=== PATIENT | male | born 1965 | race Caucasian/White ===

== ENCOUNTER 2024-05-06 12:54 | Inpatient (IN) | payer OTHER, SELFPAY ==
[2024-05-06] VITALS (16 sets, daily range): BP systolic 95–141; BP diastolic 62–88; PULSE 61–77; BMI 31.5
--- NOTE | 2024-05-06 09:31 | ED.GENMED ---
History of Present Illness
General
Chief Complaint: Fainting/Passed Out
Source: patient
Time Seen by Provider: 05/06/24 09:21
History of Present Illness
History of Present Illness:
58-year-old male brought to the emergency room from [facility] after suffering a syncopal episode. Patient was preparing to go to court. He he was anticipating being released from assisted based on this court date. He began feeling dizzy
and lightheaded like he might pass out. He sat down on a chair. He then did pass out. He has passed out past but it has been quite a long time. Currently he is having a headache as well as some upper thoracic pain. The upper thoracic pain has
been present for the past couple days. Patient denies any chest pain or shortness of breath. He denies any focal weakness numbness or tingling. He further denies any nausea or vomiting. Patient has a history of coronary artery disease with CABG.
He also had a pulmonary embolism years ago but is no longer on anticoagulation.
Past History
Past History
ED Past Medical History: CAD, CHF, HTN, Hypercholesterolemia, Psychiatric (Major depression, self injury, alcohol abuse) and Other (PE)
ED Past Surgical History: Cardiac (CABG) and Cholecystectomy
Social History
Tobacco: Smoker
Alcohol: Binge drinker
Drug: None
Personal:
Living: homeless
Employment: Disabled
Family History
Family History: Unable to obtain
Phy Exam
Physical Exam
Physical Exam:
General: Awake, Alert, Oriented X3. No acute distress.
Vitals: Bradycardic
Head: Atraumatic
Eyes: Pupils equal, EOMI
Throat: Airway intact, no exudates
Neck: Trachea midline
Lungs: Clear and equal b/l
Heart: Regular rate, no murmurs
Abd: Soft, Nontender, No pulsatile mass
Neuro: Cranial nerves intact, muscle strength equal bilaterally
Skin: Warm, dry, no rash
Extremities: pulses equal b/l, no edema
Course
Orders/Labs/Results
Orders:
Orders
05/06/24 09:19
Electrocardiogram (*1) Urgent
Reason for Study: Syncope
EKG- Treatment ONCE
05/06/24 09:28
Complete Blood Count/With Diff Urgent
Comprehensive Metabolic Panel Urgent
D-Dimer Urgent
Ferritin Urgent
Comment: ADD ON
Iron Urgent
Comment: ADD ON
PTT Urgent
TSH Urgent
Comment: ADD ON
Total Iron Binding Urgent
Comment: ADD ON
Troponin I Urgent
05/06/24 09:29
Add On- LAB Urgent
Tests Added?: D dimer
CT Head W/o Iv Contrast Urgent
Comment:
Reason For Exam: headache, syncope
05/06/24 10:33
Type+Screen Urgent
05/06/24 10:46
ABO2 Routine
BBK Wristband Number:
Associate notified that ABO2 has been ordered: CATRACHITO
Date: 05/06/24
Time: 10:40
Floor Worker Well Service ID: [id number]
05/06/24 12:32
CT Chest PE Study Urgent
Comment:
Reason For Exam: syncope chest/back pain
0.9% Sodium Chloride 1000 ml [Nss] 1,000 ml IV BOLUS
05/06/24 12:36
Add On- LAB Routine
Tests Added?: TSH, Iron, Ferrtin, TIBC
05/06/24 12:38
Admit/Transfer Patient As Directed
Co-Sign Provider:
Level of Care: Inpatient admission
Assign to:: Telemetry
Physician / Group: Kwesi
Diagnosis: Syncope
Reason for Telemetry: Chest Pain syndromes
Date to Stop Telemetry: 05/08/24
Time to Stop Telemetry: 11:00
Reason for Hospitalization: Syncope
Expected length of stay greater than two midnights?: Yes
ELOS- Estimated Length of Stay in days: 2
I certify the patient meets the requirements for IP care: Yes
05/06/24 12:40
Code Status As Directed
Resuscitation Status: Full Code
05/06/24 12:42
Echo 2D MMode Color/Doppler Routine
Reason for Study: syncope, hypotension
05/08/24 11:00
DC Protocol for Telemetry ONCE
Abnormal Lab Results
05/06/24
09:28
RBC 3.98 L 10^6/uL
(4.70-6.10)
Hgb 7.8 L g/dL
(13.0-18.0)
Hct 27.7 L %
(39.0-52.0)
MCV 69.6 L fL
(80.0-94.0)
MCH 19.6 L pg
(27.0-31.0)
MCHC 28.2 L g/dL
(33.0-37.0)
RDW 17.9 H %
(11.5-14.5)
Plt Count 79 L 10^3/uL
(130-400)
Absolute Lymphs (auto) 0.8 L 10^3/uL
(1.2-3.4)
Lymphocytes % 16.0 L %
(20.5-51.1)
Monocytes % 9.5 H %
(1.7-9.3)
Glucose 186 H mg/dl
(70-99)
Iron 46 L ug/dl
(49-181)
TIBC 483 H ug/dl
(261-462)
% Saturation 9 L %
(20-50)
Ferritin 5.0 L ng/ml
(17.9-464.0)
05/06/24 09:28
05/06/24 09:28
Vital Signs
Initial and Last Documented VS:
Initial Vital Signs
Temp Pulse Resp BP Pulse Ox
97.9 F 55 16 102/70 98
05/06/24 09:20 05/06/24 09:20 05/06/24 09:20 05/06/24 09:20 05/06/24 09:20
Last Documented Vital Signs
Temp Pulse Resp BP Pulse Ox
97.9 F 63 20 110/83 100
05/06/24 09:20 05/06/24 13:45 05/06/24 13:45 05/06/24 13:00 05/06/24 10:30
MDM/Problems Addressed
Differential Diagnosis Includes:
Vasovagal syncope, dehydration, anemia, cardiac dysrhythmia, PE
MDM/Problems Addressed:
Patient presents from assisted after suffering a syncopal event. No clear prodrome. Patient found to be anemic here. Certainly could be symptomatic anemia. I communicated with nursing staff at the assisted they state the patient had hemoglobin of
9.3 on April 15. 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 However he denies melanotic stool and is heme-negative on exam. Patient will require hospitalization for further monitoring
and workup. Considered PE but D-dimer is low and the patient does not have any shortness of breath and is not tachycardic.
Chronic conditions affecting care: HTN and CAD
*Radiology
Radiology exam reviewed: radiology read reviewed
*Pulse Oximetry
Patient hypoxic: no
*EKG
Heart Rate: 55
Rate: bradycardiac
Rhythm: sinus
[place]: normal axis
Interval: normal interval
QRS Pattern: normal QRS
Ischemia: no ischemia
*Manager Technical Interpretation
Rate: bradycardiac
Heart Rate: 55
Rhythm: sinus
*Critical Care Note
Total Time (30-74mins, 75-104mins- exclusive of procedures): Not Applicable
Patient Management
Social determinants of health affecting care: Living situation
ED Attending Note
-
Portions of this chart may have been created with voice recognition software.� Occasional wrong word or��sound alike� substitutions may have occurred due to the inherent limitations of voice recognition software.
Discharge Plan
Departure
Patient Disposition: Admit
Date of Disposition: 05/06/24
Time of Disposition: 10:11
Admit to: Telemetry
Presentation/result/management discussed w/ accepting MD/DO: Hospitalist
Condition: Fair
Discharge Problem:
Syncope, Anemia
Interventions
Interventions:
*Risk Screen - Suicide Last Done: 05/06/24 09:20
*General Assessment Last Done: 05/06/24 09:20
*Neglect/Abuse Screening Last Done: 05/06/24 09:20
ED- Fall Risk Assessment Last Done: 05/06/24 09:34
*ED COVID-19 Vaccine History Last Done: 05/06/24 11:47
ED- Cardiac Assessment Last Done: 05/06/24 09:34
ED- Neurological Assessment Last Done: 05/06/24 09:34
[2024-05-06 09:48] LABS: APTT 25.9 Sec (23.4-35.0)
[2024-05-06 09:49] LABS: ALT (SGPT) 17 U/L (0-50); AST (SGOT) 22 U/L (17-59); Alkaline Phosphatase 47 U/L (38-126); Blood Urea Nitrogen 18 mg/dl (9-20); Calcium 8.5 mg/dl (8.4-10.2); Carbon Dioxide 27 mmol/L (22-30); Chloride 105 mmol/L (98-107); Glucose 186 mg/dl (70-99); Potassium 4.3 mmol/L (3.5-5.1); Sodium 142 mmol/L (135-145); Total Bilirubin 0.8 mg/dl (0.2-1.3); Total Protein 6.7 g/dl (6.3-8.2); eGFR > 60.00
[2024-05-06 09:51] LABS: D-Dimer 0.32 ug/mlFEU (0.00-0.50)
[2024-05-06 09:52] LABS: % Basophils 0.2 % (0-2); % Eosinophils 1.8 % (0-6); % Immature Granulocytes 0.4 % (0-0.5); % Monocytes 9.5 % (1.7-9.3); % Neutrophils 72.1 % (42.2-75.2); Absolute Eosinophils 0.1 10^3/uL (0-0.7); Absolute Lymphocytes 0.8 10^3/uL (1.2-3.4); Absolute Monocytes 0.5 10^3/uL (0.1-0.6); Absolute Neutrophils 3.6 10^3/uL (1.4-6.5); Hematocrit 27.7 % (39.0-52.0); Hemoglobin 7.8 g/dL (13.0-18.0); Mean Corp Hgb Conc. 28.2 g/dL (33.0-37.0); Mean Corpuscular Hgb 19.6 pg (27.0-31.0); Mean Corpuscular Volume 69.6 fL (80.0-94.0); Nucleated Red Blood Cells % 0 % (-); Red Blood Cell Count 3.98 10^6/uL (4.70-6.10); Red Cell Dist. Width 17.9 % (11.5-14.5); White Blood Cell Count 4.9 10^3/uL (4.8-10.8)
[2024-05-06 10:01] LABS: Troponin I < 0.012 ng/ml
[2024-05-06 11:23] LABS: Platelet Count 79 10^3/uL (130-400)
[2024-05-06 11:24] LABS: Anisocytosis 1+; Hypochromasia 2+; Normal RBC Morphology No; Ovalocytes 2+; Polychromasia 1+
--- NOTE | 2024-05-06 12:43 | HPS.HSE ---
Family Physician
-
Family Physician: [facility]
Chief Complaint
-
Syncope
History of Present Illness
Patient is a 58-year-old male with history of coronary artery disease, CABG, hypertension, diabetes, prior history of pulmonary embolism currently not on anticoagulation who presents from shelter after syncopal episode. Patient describes dizziness
and lightheadedness prior to episode. He also admits of a transient chest and back pain which is currently resolved. He denies any fever, respiratory symptoms and admits being in his normal state of health prior to episode. He has been adherent
to his antihypertensive/cardiovascular medication regimen. On additional workup in the emergency room patient was found to have trending down hemoglobin at 7.8 with reported recent around 10. He denies any gastrointestinal symptoms. Denies any
blood in stool. He has a remote colonoscopy. While in emergency room patient has noted to have a soft BP. His rectal exam with heme-negative brown stool.
Medical History
Past Medical History
Past Medical History: Reports CAD, CHF, NIDDM and Other (Pulm embolism)
Past Surgical History: Reports Other (CABG)
Social History
Tobacco: Non-smoker
Drug: None
Employment: Not Employed
Family History
Family History: Not pertinent
Allergies / Home Medications
Allergies reflects when Allergies were last updated in [facility].
Home Medications with original date entered in [facility]
Allergy/Medication List:
Allergies
Allergy/AdvReac Type Severity Reaction Status Date / Time
lamotrigine [From Lamictal] Allergy Unknown Unknown Verified 05/06/24 09:18
ketorolac tromethamine Allergy Unknown Verified 05/06/24 09:18
[From Toradol]
Penicillins Allergy Unknown Verified 05/06/24 09:18
tramadol HCl [From Ultram] Allergy Unknown Verified 05/06/24 09:18
Home Medications
aspirin 81 mg chewable tablet 81 mg PO HS 05/06/24
lisinopril 30 mg tablet 30 mg PO HS 05/06/24
metformin 500 mg tablet 500 mg PO BID 05/06/24
metoprolol tartrate 25 mg tablet 25 mg PO HS 05/06/24
simvastatin 40 mg tablet (Zocor) 40 mg PO HS 05/06/24
therapeutic multivitamin 1 tab PO DAILY 05/06/24
Review of Systems
-
Respiratory: Reports See HPI
Cardiac: Reports See HPI
Abdomen/GI: Reports See HPI
Physical Exam
Vital Signs
Vital Signs
Temp Pulse Resp BP Pulse Ox
97.9 F 61 19 103/71 100
05/06/24 09:20 05/06/24 10:45 05/06/24 10:45 05/06/24 10:00 05/06/24 10:30
Physical Exam
General: Well Developed, Well Nourished and No Apparent Distress
HEENT: NormoCephalic, Moist mucous membranes and Atraumatic
Respiratory: Clear
Cardiac: S1/S2 and Regular Rhythm; No Murmur or Rub
GI: Soft, Non Tender, Non Distended and Normal Bowel Sounds; No Organomegaly
Rectal: Deferred by Provider
Musculoskeletal: No Clubbing, No Cyanosis and No Edema
Skin: No Rash
Neuro: Nonfocal/grossly intact
Laboratory Results
-
05/06/24 09:28
05/06/24 09:28
Laboratory Results
APTT 25.9 Sec (23.4-35.0) 05/06/24 09:28
Total Bilirubin 0.8 mg/dl (0.2-1.3) 05/06/24 09:28
AST 22 U/L (17-59) 05/06/24 09:28
ALT 17 U/L (0-50) 05/06/24 09:28
Alkaline Phosphatase 47 U/L (38-126) 05/06/24 09:28
Troponin I < 0.012 ng/ml 05/06/24 09:28
Impression/Plan
-
IMPRESSION:
Syncope with prodrome
Transient episode of upper chest/back pain
Hypertension
Sinus bradycardia
Chronic anemia with microcytosis and drifting down hemoglobin.
Other conditions:
CAD.
CHF unknown EF.
Status post CABG.
Essential hypertension.
History of pulmonary embolism, not on anticoagulation prior to presentation
NIDDM.
PLAN:
Syncope with prodrome.
Patient describes transient sort of chest and back pain/discomfort.
Overall nontoxic-appearing although with soft BP in ED.
ECG with sinus bradycardia and without ischemic changes.
D-dimer and troponin undetectable
Check echo
Check TSH
Check CT scan of the chest with concern with attention to aorta, PE protocol
Continue beta-napole[place] with caution
Depends on workup and echo consider cardiology evaluation
Continue cardiac monitoring
Check orthostatics
Hold lisinopril
CAD
Patient reports CHF unknown EF
Echo pending
Continue aspirin and beta-blockade
Hold lisinopril given soft blood pressure
Trending down hemoglobin at 7.8.
Microcytosis
Recent recorded value of 10.
No clinical evidence of brisk blood loss.
Rectal exam in ED brown heme-negative stool.
Check iron studies.
Trend hemoglobin
Patient consented for blood transfusion.
Consider GI evaluation if further drop
Start PPI
Type 2 diabetes.
Hemoglobin A1c.
Basal bolus protocol.
Carbohydrate controlled diet.
Hold metformin acutely
Full code
DVT prophylaxis mechanical
[2024-05-06] MEDS: NSS 1000 IV (12:46)
[2024-05-06 13:23] LABS: Iron 46 ug/dl (49-181)
[2024-05-06 13:32] LABS: Percent Saturation 9 % (20-50); Total Iron Binding Capacity 483 ug/dl (261-462)
[2024-05-06 13:49] LABS: TSH 2.83 uIU/ml (0.47-4.68)
[2024-05-06 16:59] LABS: Glucose - Point of Care 163 mg/dl (70-99)
[2024-05-06 17:31] LABS: Troponin I < 0.012 ng/ml
[2024-05-06] MEDS: NOVOLOG FLEXPEN-LOW RESISTANCE 1 UNITS SC (19:17)
[2024-05-06 21:22] LABS: Glucose - Point of Care 183 mg/dl (70-99)
[2024-05-06] MEDS: LIPITOR 20 MG PO (22:34)
[2024-05-06] MEDS: LOPRESSOR 25 MG PO (22:34)
[2024-05-06] MEDS: LOW STRENGTH ASPIRIN 81 MG PO (22:34)
[2024-05-07] VITALS (10 sets, daily range): BP systolic 122–147; BP diastolic 74–93; PULSE 73–87; BMI 32.3
[2024-05-07 02:17] LABS: Troponin I < 0.012 ng/ml
[2024-05-07 07:59] LABS: % Basophils 0.3 % (0-2); % Eosinophils 3.1 % (0-6); % Immature Granulocytes 0.3 % (0-0.5); % Lymphocytes 31.2 % (20.5-51.1); % Monocytes 11.4 % (1.7-9.3); % Neutrophils 53.7 % (42.2-75.2); Absolute Eosinophils 0.1 10^3/uL (0-0.7); Absolute Lymphocytes 1.1 10^3/uL (1.2-3.4); Absolute Monocytes 0.4 10^3/uL (0.1-0.6); Absolute Neutrophils 1.9 10^3/uL (1.4-6.5); Hematocrit 25.2 % (39.0-52.0); Hemoglobin 7.3 g/dL (13.0-18.0); Mean Corpuscular Hgb 19.9 pg (27.0-31.0); Mean Corpuscular Volume 68.9 fL (80.0-94.0); Nucleated Red Blood Cells % 0 % (-); Platelet Count 69 10^3/uL (130-400); Red Blood Cell Count 3.66 10^6/uL (4.70-6.10); Red Cell Dist. Width 17.9 % (11.5-14.5); White Blood Cell Count 3.6 10^3/uL (4.8-10.8)
[2024-05-07 08:15] LABS: Glucose - Point of Care 144 mg/dl (70-99)
--- NOTE | 2024-05-07 08:31 | W.PN.HOSP.TC ---
Today's Communication/Plan
-
Blood transfusion today.
Assessment / Plan
Assessment / Plan
Physical exam:
General: Well Developed, Well Nourished and No Apparent Distress
HEENT: Normocephalic, Atraumatic and Moist Mucous Membranes
Respiratory: Clear to Auscultation; Negative Wheezes, Rales or Rhonchi
Cardiac: Regular Rhythm and S1/S2
GI: Soft, Nontender and Nondistended
Musculoskeletal: No Clubbing, No Cyanosis and No Edema
Neuro: Awake, Alert and Oriented
Psych: Calm
A/P:
Syncope:
Cardiac monitoring
Check orthostatic
Echocardiogram with EF 60 to 65% and no significant changes from prior echo
Normal TSH
Holding JACOB inhibitor
Monitor blood pressure
Chest pain and back pain:
Atypical chest pain
Troponin less than 0.012 x 2
CTA negative for PE
CT shows thoracic compression fracture and diffuse esophageal wall thickening
Pain control
Symptomatic iron deficiency anemia:
Hemoglobin 7.8--> 7.3 today
Iron 46, TIBC 483, iron percent saturation, ferritin of 5
Discussions about blood transfusions and or IV iron infusion--> after pros and cons decided on blood transfusion today. IV Lasix low-dose after transfusion.
Continue to monitor hemoglobin
GI eval as outpatient
Pancytopenia:
Related to liver cirrhosis
Cont to monitor
Liver cirrhosis:
Status post liver biopsy back in 2008
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
CAD:
Twelve-lead EKG no acute ischemia and normal troponin
History of CABG back in 2006
Continue aspirin, beta-blockers, and statins
Cardiac monitoring
Chronic HFpEF:
Euvolemic
Not on diuretics as outpatient
GDMT continue beta-blockers and holding JACOB inhibitor but will restart soon
Reviewed updated echocardiogram
Hypertension/hypotension:
Continue antihypertensives
Monitor blood pressure and adjust medications accordingly
Hyperlipidemia:
Continue atorvastatin 20 mg p.o. nightly
Diabetes mellitus type 2:
Holding metformin acutely and use of contrast
Continue insulin sliding scale
Hemoglobin A1c pending
DVT prophylaxis:
SCDs
CODE STATUS:
Full code
Total time spent on today's encounter was 52 minutes which included time spent in counseling the patient/family regarding diagnosis and treatment plan as listed above, goals of care, and symptom management. Case was discussed with nursing staff,
specialists, and care coordinators/case management. All labs and imaging personally reviewed by me. Remainder the time spent in detailed review of previous records, lab data, imaging, and other medical provider documentation.
Anticipated Discharge: > 48 hours
Subjective/Interval History
-
Date of Service: May 07, 2024
Patient feels very tired. Short of breath. Denies melena hematemesis or bright blood per rectum or hematochezia. No abdominal pain.
Objective Data
-
Labs:
Laboratory Results
05/07/24
06:45
WBC 3.6 L
Hgb 7.3 L
Hct 25.2 L
Plt Count 69 L
Sodium Pending
Potassium Pending
Chloride Pending
Carbon Dioxide Pending
BUN Pending
Creatinine Pending
Glucose Pending
Calcium Pending
Vital Signs:
Vital Signs
Temp Pulse Resp BP Pulse Ox
97.7 F 65 16 130/76 97
05/07/24 07:00 05/07/24 07:00 05/07/24 07:00 05/07/24 07:00 05/07/24 07:00
I&O
05/06/24 05/07/24 05/08/24
06:59 06:59 06:59
Intake Total 480 / 480
Balance 480 / 480
[2024-05-07] MEDS: THERAGRAN 1 TABLET PO (08:33)
[2024-05-07] MEDS: NOVOLOG FLEXPEN-LOW RESISTANCE SC (08:33)
[2024-05-07 08:34] LABS: Blood Urea Nitrogen 17 mg/dl (9-20); Calcium 8.6 mg/dl (8.4-10.2); Carbon Dioxide 24 mmol/L (22-30); Chloride 106 mmol/L (98-107); Estimated Creatinine Clearance > 125 ml/min; Glucose 133 mg/dl (70-99); Potassium 3.7 mmol/L (3.5-5.1); Sodium 141 mmol/L (135-145); eGFR > 60.00
[2024-05-07 11:46] LABS: Glucose - Point of Care 203 mg/dl (70-99)
[2024-05-07 12:31] LABS: Glycohemoglobin (HgbA1c) 7.3 % (4.0-5.6)
[2024-05-07] MEDS: NOVOLOG FLEXPEN-LOW RESISTANCE 2 UNITS SC (13:09)
[2024-05-07] MEDS: LASIX 20 MG IV (13:10)
[2024-05-07 17:04] LABS: Glucose - Point of Care 199 mg/dl (70-99)
[2024-05-07] MEDS: NOVOLOG FLEXPEN-LOW RESISTANCE 1 UNITS SC (17:11)
[2024-05-07] MEDS: LOW STRENGTH ASPIRIN 81 MG PO (21:23)
[2024-05-07] MEDS: LIPITOR 20 MG PO (21:23)
[2024-05-07] MEDS: LOPRESSOR 25 MG PO (21:23)
[2024-05-07 21:45] LABS: Glucose - Point of Care 224 mg/dl (70-99)
[2024-05-07] MEDS: TYLENOL 650 MG PO (21:50)
[2024-05-08] VITALS (7 sets, daily range): BP systolic 112–138; BP diastolic 59–83; PULSE 53–61; BMI 32.2
[2024-05-08 07:44] LABS: Hemoglobin 8.3 g/dL (13.0-18.0); Mean Corp Hgb Conc. 29.6 g/dL (33.0-37.0); Mean Corpuscular Hgb 20.7 pg (27.0-31.0); Mean Corpuscular Volume 69.8 fL (80.0-94.0); Platelet Count 71 10^3/uL (130-400); Red Blood Cell Count 4.01 10^6/uL (4.70-6.10); Red Cell Dist. Width 18.6 % (11.5-14.5)
[2024-05-08 07:57] LABS: Blood Urea Nitrogen 18 mg/dl (9-20); Calcium 8.7 mg/dl (8.4-10.2); Carbon Dioxide 26 mmol/L (22-30); Chloride 103 mmol/L (98-107); Estimated Creatinine Clearance > 125 ml/min; Glucose 131 mg/dl (70-99); Potassium 3.5 mmol/L (3.5-5.1); Sodium 139 mmol/L (135-145); eGFR > 60.00
[2024-05-08 08:11] LABS: Glucose - Point of Care 145 mg/dl (70-99)
[2024-05-08] MEDS: THERAGRAN 1 TABLET PO (09:09)
[2024-05-08] MEDS: NOVOLOG FLEXPEN-LOW RESISTANCE SC (09:09)
--- NOTE | 2024-05-08 09:59 | W.PN.HOSP.TC ---
Today's Communication/Plan
-
IV iron infusion. Monitor hemoglobin
Assessment / Plan
Assessment / Plan
Physical exam:
General: Well Developed, Well Nourished and No Apparent Distress
HEENT: Normocephalic, Atraumatic and Moist Mucous Membranes
Respiratory: Clear to Auscultation; Negative Wheezes, Rales or Rhonchi
Cardiac: Regular Rhythm and S1/S2
GI: Soft, Nontender and Nondistended
Musculoskeletal: No Clubbing, No Cyanosis and No Edema
Neuro: Awake, Alert and Oriented
Psych: Calm
A/P:
Syncope:
Cardiac monitoring
Check orthostatic
Echocardiogram with EF 60 to 65% and no significant changes from prior echo
Normal TSH
Holding JACOB inhibitor
Blood transfusion + IV Iron infusion-see below
Monitor blood pressure
Chest pain and back pain:
Atypical chest pain
Troponin less than 0.012 x 2
CTA negative for PE
CT shows thoracic compression fracture and diffuse esophageal wall thickening
Pain control
Headache:
Symptomatic care
Symptomatic iron deficiency anemia:
Hemoglobin 7.8--> 7.3--> 8.3 today
Iron 46, TIBC 483, iron percent saturation, ferritin of 5
Status post blood transfusion 1 unit on 05/07.
Will start IV iron today.
Recheck hemoglobin in am
Consider GI eval if drop hemoglobin otherwise can possible be d/c in am
Pancytopenia:
Related to liver cirrhosis
Cont to monitor
Liver cirrhosis:
Status post liver biopsy back in 2008
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
CAD:
Twelve-lead EKG no acute ischemia and normal troponin
History of CABG back in 2006
Continue aspirin, beta-blockers, and statins
Cardiac monitoring
Chronic HFpEF:
Euvolemic
Not on diuretics as outpatient
GDMT continue beta-blockers and holding JACOB inhibitor but will restart soon
Reviewed updated echocardiogram
Hypertension/hypotension:
Continue antihypertensives
Monitor blood pressure and adjust medications accordingly
Hyperlipidemia:
Continue atorvastatin 20 mg p.o. nightly
Diabetes mellitus type 2:
Holding metformin acutely and use of contrast
Continue insulin sliding scale
Hemoglobin A1c pending
DVT prophylaxis:
SCDs
CODE STATUS:
Full code
Anticipated Discharge: Within 24 hours
Subjective/Interval History
-
Date of Service: May 08, 2024
Patient feels better today. No melena or bright blood per rectum. Complains of headache.
Objective Data
-
Labs:
Laboratory Results
05/08/24
06:34
WBC 4.0 L
Hgb 8.3 L
Hct 28.0 L
Plt Count 71 L
Sodium 139
Potassium 3.5
Chloride 103
Carbon Dioxide 26
BUN 18
Creatinine 0.7
Glucose 131 H
Calcium 8.7
Vital Signs:
Vital Signs
Temp Pulse Resp BP Pulse Ox
97.4 F 53 16 112/59 98
05/08/24 07:00 05/08/24 07:00 05/08/24 07:00 05/08/24 07:00 05/08/24 07:00
I&O
05/07/24 05/08/24 05/09/24
06:59 06:59 06:59
Intake Total 1929
Balance 1929
[2024-05-08 11:54] LABS: Glucose - Point of Care 198 mg/dl (70-99)
[2024-05-08] MEDS: NOVOLOG FLEXPEN-LOW RESISTANCE 1 UNITS SC ×2 (13:01→18:14)
--- NOTE | 2024-05-08 14:32 | CM ---
CM following re: d/c planning.
Pt is from [facility].
He is independent with mobility and ADLs.
Guards at bedside.
Call placed to Nursing @ [facility], spoke with TANA Licona, plan is for pt to return to [facility] at d/c.
D/c summary to be sent to (fax) [phone].
Goal: return to [facility] at d/c.
[2024-05-08] MEDS: FERRLECIT 110 MG IV (15:14)
[2024-05-08] MEDS: TYLENOL 650 MG PO (16:49)
[2024-05-08 17:45] LABS: Glucose - Point of Care 197 mg/dl (70-99)
[2024-05-08] MEDS: LOW STRENGTH ASPIRIN 81 MG PO (21:05)
[2024-05-08] MEDS: LIPITOR 20 MG PO (21:05)
[2024-05-08] MEDS: LOPRESSOR 25 MG PO (21:05)
[2024-05-08 21:28] LABS: Glucose - Point of Care 210 mg/dl (70-99)
[2024-05-09 03:31] VITALS: BP 115/66
[2024-05-09 06:00] VITALS: BMI 31.9
[2024-05-09 07:02] LABS: Hematocrit 29.9 % (39.0-52.0); Hemoglobin 8.7 g/dL (13.0-18.0); Mean Corp Hgb Conc. 29.1 g/dL (33.0-37.0); Mean Corpuscular Hgb 20.4 pg (27.0-31.0); Platelet Count 81 10^3/uL (130-400); Red Blood Cell Count 4.27 10^6/uL (4.70-6.10); Red Cell Dist. Width 18.6 % (11.5-14.5); White Blood Cell Count 5.3 10^3/uL (4.8-10.8)
[2024-05-09 07:47] VITALS: BP 147/81
[2024-05-09 08:00] LABS: Glucose - Point of Care 138 mg/dl (70-99)
[2024-05-09] MEDS: NOVOLOG FLEXPEN-LOW RESISTANCE SC (08:51)
[2024-05-09] MEDS: THERAGRAN 1 TABLET PO (08:52)
[2024-05-09] MEDS: TYLENOL 650 MG PO (10:56)
[2024-05-09 11:15] VITALS: BP 140/85; BP 145/74; BP 149/76; PULSE 68; PULSE 72; PULSE 80
[2024-05-09 13:24] LABS: Glucose - Point of Care 253 mg/dl (70-99)
[2024-05-09] MEDS: NOVOLOG FLEXPEN-LOW RESISTANCE 3 UNITS SC (13:27)
[2024-05-09] MEDS: FERRLECIT 110 MG IV (15:19)
--- NOTE | 2024-05-09 15:25 | W.DS.TRANS ---
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
-
Discharge Instructions:
Discharge Diagnosis/Procedures Syncope.
Chronic anemia
Cirrhosis
Diet Regular
Instructions:
Stand-Alone Forms:
Changes to Home Medications: No
Discharge Medications:
DC Medications w/original date entered in [facility]
aspirin 81 mg chewable tablet 81 mg PO HS Blood Clot Prevention/Tx 05/06/24
lisinopril 30 mg tablet 30 mg PO HS Blood Pressure 05/06/24
metformin 500 mg tablet 500 mg PO BID Diabetes 05/06/24
metoprolol tartrate 25 mg tablet 25 mg PO HS Blood Pressure 05/06/24
simvastatin 40 mg tablet (Zocor) 40 mg PO HS High Cholesterol 05/06/24
therapeutic multivitamin 1 tab PO DAILY Supplement 05/06/24
Home Medication Changes
Pending Results: No
[2024-05-09 15:30] VITALS: BP 117/69
--- NOTE | 2024-05-09 16:11 | CM ---
Patient for return to [facility]. [facility] indicated that their fax machine is not working and requested summary of care via email [email or web address]. CM will continue to follow for discharge planning needs.
Plan; return to [facility]
--- NOTE | 2024-05-09 16:35 | PTCARENOTE ---
patient LBM 5 days ago. Dulcolax suppository orderd, but patient refused. he said, 'I don't want that when I'm going back to [facility]!, despite being told benefits and risks of not having BM. independent to BR, vss, will continue to monitor.
[2024-05-09 17:09] LABS: Glucose - Point of Care 187 mg/dl (70-99)
[2024-05-09] MEDS: NOVOLOG FLEXPEN-LOW RESISTANCE 1 UNITS SC (17:23)
== END 2024-05-09 18:43 | DRG 812 ==
LOC: 3 WEST ACU 12:54
PROVIDERS: Hospitalist; ADMITTING PHYSICIAN Internal Medicine; EMERGENCY PHYSICIAN Emergency Medicine
PROC: 30233N1 Transfusion of Nonautologous Red Blood Cells into Peripheral Vein, Percutaneous Approach (ICD-10-PCS; 2024-05-07)
DX: D50.9 Iron deficiency anemia, unspecified (principal); D61.818 Other pancytopenia; I50.30 Unspecified diastolic (congestive) heart failure; M48.54XA Collapsed vertebra, not elsewhere classified, thoracic region, initial encounter for fracture; R55 Syncope and collapse; I11.0 Hypertensive heart disease with heart failure; K74.60 Unspecified cirrhosis of liver; I25.10 Atherosclerotic heart disease of native coronary artery without angina pectoris; Z95.1 Presence of aortocoronary bypass graft; Z86.711 Personal history of pulmonary embolism; E11.9 Type 2 diabetes mellitus without complications; Z79.82 Long term (current) use of aspirin; Z79.84 Long term (current) use of oral hypoglycemic drugs; Z88.0 Allergy status to penicillin; E78.00 Pure hypercholesterolemia, unspecified; F10.21 Alcohol dependence, in remission; F32.A Depression, unspecified
CPT/HCPCS: 70450; 71275; 80048; 80053; 82728; 82962; 83036; 83540; 83550; 84443; 84484; 85025; 85027; 85379; 85730; 86850; 86900; 86901; 86920; 87070; 87147; 93005; 93306; 96360; 99285; J2916; P9016; Q9967